=== PATIENT | female | born 1940 | race Caucasian/White ===

== ENCOUNTER 2021-11-04 16:02 | Emergency (ER) | payer OTHER ==
[2021-11-04 16:14] VITALS: BP 119/78; PULSE 65; TEMP 98.6; BMI 29.9
[2021-11-04] MEDS ORDERED: ACETAMINOPHEN 500 MG TABLET (FP) PO ONE (16:53)
[2021-11-04] MEDS ORDERED: ACETAMINOPHEN 325 MG TABLET (FP) ONE (17:17)
== END 2021-11-04 19:21 | disposition home or self-care (01) ==
LOC: JER 16:02
DX: M79.604 Pain in right leg (principal)
CPT/HCPCS: 93971-TC; 99284-25

== ENCOUNTER 2021-11-13 12:46 | Emergency (ER) | payer OTHER ==
[2021-11-13 13:14] VITALS: BP 123/74; PULSE 61; TEMP 98.4; BMI 29.6
[2021-11-13] MEDS ORDERED: LIDOCAINE 5% TOPICAL PATCH TP ONE (14:11)
[2021-11-13] MEDS ORDERED: ACETAMINOPHEN 500 MG TABLET (FP) PO ONE (14:11)
[2021-11-13] MEDS ORDERED: LIDOCAINE 5% TOPICAL PATCH ONE (14:15)
[2021-11-13] MEDS ORDERED: ACETAMINOPHEN 325 MG TABLET (FP) ONE (14:15)
[2021-11-13] MEDS ORDERED: DOCUSATE SODIUM 100 MG CAPSULE (FP) PO ONE ×2 (15:15→15:19)
[2021-11-13] MEDS ORDERED: oxyCODONE HCL 5 MG TABLET PO ONE (15:15)
[2021-11-13] MEDS ORDERED: oxyCODONE HCL 5 MG TABLET ONE (15:19)
[2021-11-13] MEDS ORDERED: LIDOCAINE PATCH REMOVAL MC SCH (22:00)
== END 2021-11-13 15:49 | disposition home or self-care (01) ==
LOC: JER 12:46
DX: M79.661 Pain in right lower leg (principal)
CPT/HCPCS: 73564-TC-RT-FY; 73590-TC-RT-FY; 99284-25

== ENCOUNTER 2023-08-08 10:23 | Emergency (ER) | payer OTHER ==
[2023-08-08 10:45] VITALS: BP 127/62; PULSE 65; RESP 18; TEMP 97.2; BMI 29.6
[2023-08-08] MEDS ORDERED: ACETAMINOPHEN 500 MG TABLET (FP) PO ONE (11:38)
[2023-08-08] MEDS ORDERED: KETOROLAC TROMETHAMINE 30 MG/1 ML VIAL IM ONE (11:39)
[2023-08-08] MEDS ORDERED: ACETAMINOPHEN 500 MG TABLET (FP) ONE (11:52)
[2023-08-08] MEDS ORDERED: KETOROLAC TROMETHAMINE 15 MG/ML VIAL ONE (11:52)
== END 2023-08-08 14:26 | disposition home or self-care (01) ==
LOC: JER 10:23
PROC: 3E0233Z Introduction of Anti-inflammatory into Muscle, Percutaneous Approach (ICD-10-PCS; principal; 2023-08-08)
DX: M25.561 Pain in right knee (principal); R22.41 Localized swelling, mass and lump, right lower limb
CPT/HCPCS: 73562-TC-RT-FY; 96372; 99284-25